=== PATIENT | female | born 1965 | race Two or more races ===

== ENCOUNTER 2017-08-24 04:43 | Emergency (ER) | payer OTHER ==
[~2017-08-24] VITALS: Ht 157.5 cm; Wt 71.9 kg
[2017-08-24] MEDS ORDERED: CIPRODEX OTIC7.5 ML LEFT EAR (05:31)
[2017-08-24 05:39] VITALS: BP 172/101
== END 2017-08-24 05:40 | disposition home or self-care (01) ==
LOC: EME 04:43
DX: H92.02 Otalgia, left ear (principal); I10 Essential (primary) hypertension
CPT/HCPCS: 99281; 99283